=== PATIENT | male | born 1980 | race Caucasian/White ===

== ENCOUNTER 2023-07-17 14:33 | Emergency (ER) | payer SELFPAY ==
--- NOTE | 2023-07-17 14:42 | XR_ITS ---
WS: [id number] Left foot, 3 views, 07/17/2023 Clinical Data: injury Comparison: None. Findings: No fractures or dislocations are seen. No bone destruction or erosion is noted. The joint spaces and soft tissues are normal. There is a small Achilles spur. Impression: Negative left foot.
[2023-07-17 14:43] VITALS: RESP 18; TEMP 36.7; O2SAT 98
--- NOTE | 2023-07-17 14:43 | ED_ITS ---
HPI - Extremity Problem General: Chief complaint: Wound/Laceration Stated complaint: left foot injury with chainsaw Time Seen by Provider: 07/17/23 14:35 Source: patient Mode of arrival: ambulatory Limitations: no limitations History of Present Illness: 43-year-old male states he is cutting tr ee with a chainsaw states that he kicked his chainsaw back into his left foot and lacerated his left foot he was wearing a boot he has a lacerations roughly 3 cm over the lateral portion of his foot no signs of any deep injuries he has pain he rates 3 out of 10 unsure when his last tetanus was. Associated symptoms: Deny chest pain, fever(s) or rash Review of Systems Const: Denies: fever(s), chills, body aches or change in appetite ENMT: Denies: throat pain or dental pain Card: Denies: chest pain Resp: Denies: dyspnea GI: Denies: abdominal pain, nausea, vomiting or diarrhea Musc: Reports: extremity pain; Denies: neck pain or back pain Skin/Breast: Denies: rash Neuro: Denies: headache(s) Physical Exam Const: COMMON NORMALS: no acute distress, patient oriented x3 and healthy appearing HENMT: COMMON NORMALS: normocephalic and atraumatic HEAD & SCALP: normocephalic and atraumatic Neck/C-Spine: COMMON NORMALS: full ROM and supple Chest: COMMONS NORMALS: normal inspection of the chest and normal palpation of entire chest wall Resp: COMMON NORMALS: normal respiratory effort, No retractions, No use of accessory muscles and clear to auscultation bilaterally AUSCULTATION: clear to auscultation bilaterally Cardio: COMMON NORMALS: regular rate, regular rhythm and No murmurs present (Cardio) RATE: regular rate RHYTHM: regular rhythm GI: COMMON NORMALS: Normal to inspection, nondistended, normoactive bowel sounds present, Soft to palpation, non-tender and no masses PALPATION: Yes Soft to palpation Extremity: COMMON NORMALS: full ROM NARRATIVE EXTREMITY EXAM: 4 cm laceration to left lateral foot no bony involvement of deep structure involvement bleeding controlled Neuro: COMMON NORMALS: patient oriented x3, moves all extremities and no focal motor deficits Psych: COMMON NORMALS: mental status grossly normal, Normal thought process present and cooperative THOUGHT PROCESS: Normal thought process present Skin: COMMON NORMALS: no rashes or lesions noted and no wounds GENERAL SKIN EXAM: no rashes or lesions noted Procedures Laceration Laceration 1: Site: lower extremity Side (If applicable): left Size (cm): 4 Description: linear Depth: simple, single layer Local Anesthetic: lidocaine 1% Amount of anesthesia used (mL): 10 Skin layer closed with: nylon Size (cm): 5-0 Number of sutures: 6 Technique: simple, interrupted Course Vital Signs: Vital signs: Vital Signs Temperature 98.1 F 07/17/23 14:43 Respiratory Rate 18 07/17/23 14:43 Pulse Oximetry 98 07/17/23 14:43 Oxygen Delivery Me thod Room Air 07/17/23 14:43 MDM - Extremity (Nontraumatic) Medical Decision Making Patient presents here with laceration to foot x-ray shows no fracture did irrigate thoroughly placed 6 sutures he is to return in 10 days for suture removal did update his tetanus he is to return if he has any signs of infection he understands agrees to plan. Medical Records I reviewed the patient's medical records. All radiology interpretation(s) finalized by discharge Discharge Plan Discharge Patient Disposition: Home Clinical Impression: Laceration Condition: Stable Prescriptions: No Action No Known Home Medications Discharge Orders: Discharge ED (Routine); Ordered 07/17/23 Ordered By: Maryjo Easton Discharge Diet: Advance as tolerated Discharge Activity: Resume usual activity Patient Instructions: Laceration (ED) Activity Restrictions/Additional Instructions: suture removal in 10 days Coding Level of Care Code ED Field Interviewer for Cristian Bruce
[2023-07-17] MEDS: HYDROcodone-acetaminophen 5-325 mg Tablet 1 TAB PO (14:48)
--- NOTE | 2023-07-17 15:10 | PC.NURSE ---
Cleaned wound on patient's foot with 500 ml sterile water.
== END 2023-07-17 15:42 | disposition home or self-care (01) ==
PROVIDERS: Emergency Provider Emergency Medicine
DX: S91.312A Laceration without foreign body, left foot, initial encounter (principal); W29.3XXA Contact with powered garden and outdoor hand tools and machinery, initial encounter; Y93.H9 Activity, other involving exterior property and land maintenance, building and construction; Z23 Encounter for immunization
CPT/HCPCS: 12002; 73630; 99283

== ENCOUNTER 2024-01-14 10:53 | Emergency (ER) | payer SELFPAY ==
[2024-01-14 10:56] VITALS: BP 120/85; PULSE 78; RESP 16; TEMP 36.6; O2SAT 97
[2024-01-14 11:01] VITALS: BP 120/85; O2SAT 97
[2024-01-14 11:39] LABS: Basophils % 0.6 %; Hematocrit 48.9 % (37-53); Lymphocytes % 30.8 %; Mean Corpuscular HGB Conc 34.4 g/dL (30-55); Mean Corpuscular Volume 90.2 fl (82-101); Mean Platelet Volume 10.7 fL (7.4-10.4); Monocytes # 0.2 10^3/uL (0.2-0.9); Monocytes % 5.5 %; Neutrophils # 2.06 10^3/uL (1.8-7.7); Neutrophils % 62.8 %; Nucleated Red Blood Cells % 0 %; Platelet Count 113 10^3/cmm (157-399); Red Blood Count 5.42 10^6/uL (3.85-5.65); Red Cell Distribution Width 12.4 % (12.1-15.1); White Blood Count 3.28 10^3/uL (3.29-11.43)
[2024-01-14 11:51] LABS: Alanine Aminotransferase 123 U/L (0-41); Albumin Level 4.3 g/dL (3.5-5.2); Alkaline Phosphatase 166 U/L (40-130); Anion Gap 17.1 (5-19); Aspartate Amino Transferase 79 U/L (0-40); Blood Urea Nitrogen 10 mg/dL (6-20); Calcium 9.2 mg/dL (8.5-10.5); Carbon Dioxide 26 mmol/L (22-29); Chloride 98 mmol/L (98-107); Globulin 3.2 g/dL (1.3-4.6); Glomerular Filtration Rate 104.5 mL/min (90-130); Glucose 99 mg/dL (65-115); Lipase 17 U/L (13-60); Osmolality Calculated 283 mOsm/kg (285-295); Potassium 4.1 mmol/L (3.5-5.1); Sodium 137 mmol/L (136-145); Total Bilirubin 0.8 mg/dL (0.15-1.2); Total Protein 7.5 g/dL (6.6-8.7)
--- NOTE | 2024-01-14 12:02 | ED_ITS ---
HPI - General Adult 2 General: Chief complaint: General Medical Stated complaint: fever, abd pain Time Seen by Provider: 01/14/24 11:26 Source: patient Mode of arrival: ambulatory History of Present Illness: 43-year-old male presents emergency room complaining of fever for the last 4 days with bilateral flank pain. He is tried Tylenol and ibuprofen. Tmax has been 104 but he has had regular temps these reports of 102. When he was in his 20s he had an episode of renal failure related to salicylate overdose. He denies dysuria urgency or frequency or hematuria. Denies vomiting or diarrhea but has had migraine during the same timeframe and its made him very nauseous. He denies hematemesis or coffee-ground emesis. Due to the headache and flank pain he has had poor appetite and poor intake the last several days. Onset (ago): minute(s) Associated symptoms: Deny chest pain, dyspnea or rash Review of Systems 2 Const: Denies: fever(s) or chills Card: Denies: chest pain Resp: Denies: dyspnea GI: Denies: abdominal pain : Denies: dysuria, urinary frequency or urinary urgency Musc: Denies: neck pain or back pain Skin/Breast: Denies: rash Physical Exam 2 Const: GENERAL APPEARANCE: cooperative and comfortable O RIENTATION/CONSCIOUSNESS: Yes awake, Yes oriented to person, Yes oriented to place and Yes oriented to time HENMT: COMMON NORMALS: normocephalic, atraumatic and hearing grossly normal bilaterally HEAD & SCALP: normocephalic and atraumatic Resp: COMMON NORMALS: normal respiratory effort, No retractions, No use of accessory muscles and clear to auscultation bilaterally AUSCULTATION: clear to auscultation bilaterally Cardio: COMMON NORMALS: regular rate, regular rhythm and No murmurs present (Cardio) RATE: regular rate RHYTHM: regular rhythm GI: COMMON NORMALS: Soft to palpation and No hepatosplenomegaly present A USCULTATION: Yes normoactive bowel sounds PALPATION: Yes Soft to palpation, No Tenderness to palpation present (GI), No Guarding due to palpation present (GI) and Yes No hepatosplenomegaly present : BLADDER/KIDNEY EXAM: Yes CVA tenderness Back/Pelvis: GENERAL BACK: Yes CVA tenderness CVA tenderness: bilateral Extremity: COMMON NORMALS: normal to inspection, capillary refill normal, no clubbing, cyanosis or edema, no calf tenderness and no pedal edema Neuro: SENSORIUM/ORIENTATION: Yes oriented to person, Yes oriented to place and Yes oriented to time Skin: COMMON NORMALS: no rashes or lesions noted GENERAL SKIN EXAM: no rashes or lesions noted Course 2 Vital Signs: Vital signs: Vital Signs Temperature 97.9 F 01/14/24 10:56 Pulse Rate 68 01/14/24 15:44 Respiratory Rate 16 01/14/24 10:56 Blood Pressure 126/81 01/14/24 15:44 Pulse Oximetry 92 01/14/24 15:44 Oxygen Delivery Me thod Room Air 01/14/24 14:00 MDM - General Adult Medical Decision Making Fever and abdominal pain. CT was negative white count shows some mild leukopenia. He is feeling a little better after fluids and ketorolac and metoclopramide for his headache. Suspect is viral in nature will discharge patient home return if he has further problems clinical diet for the next 2 days. Medical Records I reviewed the patient's medical records. Lab Data I reviewed the patient's lab results. 01/14/24 11:23 01/14/24 11:23 Radiology Impressions Abdomen/Pelvis CT 01/14/24 12:07 IMPRESSION: 1. No renal obstruction or calcification. No perinephric stranding. 2. Normal appendix. 3. No GI tract obstruction. 4. Slightly contracted gallbladder is probably due to a nonfasting state. No adjacent inflammation. Head CT 01/14/24 12:07 IMPRESSION: Negative head CT. Gallbladder Ultrasound 01/14/24 13:28 IMPRESSION: 1. Negative gallbladder. 2. No intrahepatic duct dilatation. 3. Hepatic hemangioma, 1.1 cm. Laboratory Results WBC 3.28 10^3/uL (3.29-11.43) L 01/14/24 11:23 RBC 5.42 10^6/uL (3.85-5.65) 01/14/24 11:23 Hgb 16.80 g/dL (11.27-16.99) 01/14/24 11:23 Hct 48.9 % (37-53) 01/14/24 11:23 MCV 90.2 fl (82-101) 01/14/24 11:23 MCH 31.0 pg (27-33) 01/14/24 11:23 MCHC 34.4 g/dL (30-55) 01/14/24 11:23 RDW 12.4 % (12.1-15.1) 01/14/24 11:23 Plt Count 113 10^3/cmm (157-399) L 01/14/24 11:23 MPV 10.7 fL (7.4-10.4) H 01/14/24 11:23 Neut % (Auto) 62.8 % 01/14/24 11:23 Lymph % (Auto) 30.8 % 01/14/24 11:23 [place] % (Auto) 5.5 % 01/14/24 11:23 Eos % (Auto) 0.0 % 01/14/24 11:23 Baso % (Auto) 0.6 % 01/14/24 11:23 Neut # (Auto) 2.06 10^3/uL (1.8-7.7) 01/14/24 11:23 Lymph # (Auto) 1.0 10^3/uL (0.8-4.8) 01/14/24 11:23 [place] # (Auto) 0.2 10^3/uL (0.2-0.9) 01/14/24 11:23 Eos # (Auto) 0.0 10^3/uL (0.0-0.8) 01/14/24 11:23 Baso # (Auto) 0.0 10^3/uL (0.0-0.1) 01/14/24 11:23 Nucleated RBC % (auto) 0 % 01/14/24 11:23 Nucleated RBCs # 0.0 /100WBC 01/14/24 11:23 Sodium 137 mmol/L (136-145) 01/14/24 11:23 Potassium 4.1 mmol/L (3.5-5.1) 01/14/24 11:23 Chloride 98 mmol/L (98-107) 01/14/24 11:23 Carbon Dioxide 26 mmol/L (22-29) 01/14/24 11:23 Anion Gap 17.1 (5-19) 01/14/24 11:23 BUN 10 mg/dL (6-20) 01/14/24 11:23 Creatinine 0.8 mg/dL (0.7-1.2) 01/14/24 11:23 GFR Calculation 104.5 mL/min (90-130) 01/14/24 11:23 Glucose 99 mg/dL (65-115) 01/14/24 11:23 Calculated Osmolality 283 mOsm/kg (285-295) L 01/14/24 11:23 Lactic Acid 1.0 mmol/L (0.5-2.2) 01/14/24 11:23 Calcium 9.2 mg/dL (8.5-10.5) 01/14/24 11:23 Magnesium 2.1 mg/dL (1.7-2.3) 01/14/24 11:23 Total Bilirubin 0.8 mg/dL (0.15-1.2) 01/14/24 11:23 AST 79 U/L (0-40) H 01/14/24 11:23 ALT 123 U/L (0-41) H 01/14/24 11:23 Alkaline Phosphatase 166 U/L (40-130) H 01/14/24 11:23 Total Protein 7.5 g/dL (6.6-8.7) 01/14/24 11:23 Albumin 4.3 g/dL (3.5-5.2) 01/14/24 11:23 Globulin 3.2 g/dL (1.3-4.6) 01/14/24 11:23 Lipase 17 U/L (13-60) 01/14/24 11:23 Urine Color Yellow (Yellow) 01/14/24 13:13 Urine Appearance Clear (CLEAR) 01/14/24 13:13 Urine pH 6 (5-7) 01/14/24 13:13 Ur Specific [place] 1.005 (1.005-1.030) 01/14/24 13:13 Urine Protein Neg (Negative) 01/14/24 13:13 Urine Glucose (UA) Norm (Normal) 01/14/24 13:13 Urine Ketones 1+ (Negative) H 01/14/24 13:13 Urine Blood Neg (Negative) 01/14/24 13:13 Urine Nitrate Negative (Negative) 01/14/24 13:13 Urine Bilirubin Neg (Negative) 01/14/24 13:13 Urine Urobilinogen Norm mg/dL (Negative) 01/14/24 13:13 Ur Leukocyte Esterase Negative (Negative) 01/14/24 13:13 Hepatitis A IgM Ab Non-reactive (Nonreactive) 01/14/24 11:23 Hep Bs Antigen Non-reactive (Nonreactive) 01/14/24 11:23 Hep B Core IgM Ab Non-reactive (Nonreactive) 01/14/24 11:23 Hepatitis C Antibody Non-reactive (Nonreactive) 01/14/24 11:23 All radiology interpretation(s) finalized by discharge Discharge Plan Discharge Patient Disposition: Home Clinical Impression: Acute right flank pain, Elevated transaminase level, Headache Condition: Stable Prescriptions: New promethazine 25 mg tablet 25 mg PO Q6H PRN (Reason: headache) Qty: 20 0RF diclofenac sodium 75 mg tablet,delayed release (DR/EC) 75 mg PO Q12H PRN (Reason: pain) Qty: 20 0RF Discontinued ibuprofen 200 mg Tablet 400 mg PO Q6H PRN (Reason: Pain) No Action acetaminophen 500 mg Tablet 500 mg PO Q6H PRN (Reason: Pain) Discharge Orders: Discharge ED (Routine); Ordered 01/14/24 Ordered By: Lalito Rodarte Discharge Diet: Usual diet Discharge Activity: Increase activity as tolerated Patient Instructions: Opioid Safety, Pain Management Activity Restrictions/Additional Instructions: Thank you for choosing [facility] for your healthcare needs today. It is very important that you follow up as instructed or that you return to the Emergency Department should you have concerns or if your condition changes or worsens in any way. You were seen today for right flank pain. Urine was normal. There is no elevation of your white count. CT did not show any acute abnormalities. Your liver enzymes were elevated but the gallbladder ultrasound was also negative. You would also mentioned you had had a headache. CT of your head did not show any acute abnormalities or bleeding. You were given diclofenac and promethazine to use as needed for recurrent headache and the persistent flank pain. You should establish with a primary care doctor if your symptoms persist follow-up with your primary care doctor you should have your liver functions rechecked if they remain elevated you may need further evaluation with specialist. Coding Level of Care Code ED Water Quality Specialist for Cristian Bruce
--- NOTE | 2024-01-14 12:07 | CT_ITS ---
WS: [id number] CT HEAD NONCONTRAST HISTORY: headache TECHNIQUE: Contiguous axial imaging performed through the brain in 3.0 mm imaging. Bone and soft tiss ue windows. Sagittal and coronal reformats reviewed. All CT scans at [facility] use at least one of these dose optimization techniques: automated exposure control; mA and/or kV adjustment per pa tient size (includes targeted exams where dose is matched to clinical indication); or iterative recon struction. DLP: 1043.20 mGy.cm COMPARISON: 04/06/2010 No acute intracranial hemorrhage, midline shift or mass effect. No atrophy or prior infarcts or herniation. Ventricles: Normal size with no hydrocephalus. Paranasal sinuses: As visualized are clear. Mastoid air cells: Well pneumatized. Calvarium and scalp: Skull is intact with no soft tissue edema or swelling. CT/CT head wo con* [id number] IMPRESSION: Negative head CT.
--- NOTE | 2024-01-14 12:07 | CT_ITS ---
WS: [id number] CT ABDOMEN AND PELVIS NONCONTRAST HISTORY: flank pain TECHNIQUE: Imaging performed through the abdomen and pelvis. Coronal and sagittal reformats are submi tted. All CT scans at [facility] use at least one of these dose optimization techniques: auto mated exposure control; mA and/or kV adjustment per patient size (includes targeted exams where dose is matched to clinical indication); or iterative reconstruction. DLP: 648.29 mGy.cm COMPARISON: None available. Lower thorax: Lung bases are clear. Visualized heart is normal. Small hiatal hernia. Liver: Mild hepatic steatosis. Liver is very minimally enlarged. No bile duct dilatation. Gallbladder: Mildly contracted gallbladder. Breathing motion artifact causing indistinctness of the w all. No adjacent inflammation. Pancreas: Normal size and attenuation. Normal pancreatic duct. No pancreatitis or mass. Spleen: Normal. Adrenal glands: Normal. No mass. Right kidney: Normal size kidney with no mass or hydronephrosis. Left kidney: Normal size kidney with no mass or hydronephrosis. Aorta: Mild atherosclerosis abdominal aorta with no aneurysm. No free fluid, intraperitoneal air or significant lymphadenopathy. GI tract: Normal noncontrast imaging of the stomach, small bowel and colon. No obstruction or wall th ickening. Normal appendix. Abdominal wall: Small umbilical hernia contains fat only. Pelvis: Well-distended urinary bladder. No free fluid. No adenopathy. Osseous structures: Slight anterior wedging of T12. CT/CT kidney stone [id number] IMPRESSION: 1. No renal obstruction or calcification. No perinephric stranding. 2. Normal appendix. 3. No GI tract obstruction. 4. Slightly contracted gallbladder is probably due to a nonfasting state. No a djacent inflammation.
[2024-01-14 12:34] LABS: Slide Review Slide Review Perform
[2024-01-14 13:00] VITALS: BP 113/80; PULSE 73; O2SAT 91
[2024-01-14 13:21] LABS: Magnesium 2.1 mg/dL (1.7-2.3)
--- NOTE | 2024-01-14 13:28 | US_ITS ---
WS: [id number] RIGHT UPPER QUADRANT ULTRASOUND HISTORY: elevated LFTs COMPARISON: None available. Liver: 17.5 cm in length. Normal size liver and echogenicity. No bile duct dilatation. Hyperechoic ma ss measures 1.1 cm toward the diaphragmatic surface consistent with a hemangioma. Portal Vein: Normal hepatopetal flow with monophasic waveform. Gallbladder: Normally distended gallbladder with no stones or wall thickening. Slight gallbladder con traction. CBD: 0.3 cm Pancreas: Normal size and echogenicity. Right kidney: 10.5 cm in length. Normal size and echogenicity. No hydronephrosis or mass. Aorta and IVC: Unremarkable abdominal aorta and IVC. No ascites. US/US gall bladder [id number] IMPRESSION: 1. Negative gallbladder. 2. No intrahepatic duct dilatation. 3. Hepatic hemangioma, 1.1 cm.
[2024-01-14 13:30] VITALS: BP 124/80; PULSE 68; O2SAT 95
[2024-01-14 14:00] VITALS: BP 103/79; PULSE 70; O2SAT 96
[2024-01-14 14:14] LABS: Hepatitis A Antibody IgM Non-Reactive (Nonreactive); Hepatitis B Core IgM Non-Reactive (Nonreactive); Hepatitis B Surface Antigen Non-Reactive (Nonreactive); Hepatitis C Virus Antibody Non-Reactive (Nonreactive)
[2024-01-14 14:29] LABS: Add Urine Microscopic? NO; Charge for UA Resulting for Rev
[2024-01-14 14:59] LABS: Bilirubin Urine Neg (Negative); Blood Urine Neg (Negative); Glucose Urine UA Norm (Normal); Ketones Urine 1+ (Negative); Leukocyte Esterase Urine Negative (Negative); Nitrate Urine Negative (Negative); Protein Urine Neg (Negative); Specific Gravity, Urine 1.005 (1.005-1.030); Urine Appearance Clear (CLEAR); Urine Color Yellow (Yellow); Urobilinogen Urine Norm (Negative); pH Urine 6 (5-7)
[2024-01-14] MEDS: dexamethasone 10 mg/mL INJ IVP (15:39)
[2024-01-14] MEDS: ketorolac 30 mg/mL INJ IVP (15:39)
[2024-01-14] MEDS: metoclopramide 5 mg/mL SDV 2 mL 10 MG IVP (15:40)
[2024-01-14 15:44] VITALS: BP 126/81; PULSE 68; O2SAT 92
== END 2024-01-14 16:07 | disposition home or self-care (01) ==
PROVIDERS: Emergency Medicine; Emergency Provider Family Medicine
DX: R10.9 Unspecified abdominal pain (principal); R51.9 Headache, unspecified; R74.01 Elevation of levels of liver transaminase levels
CPT/HCPCS: 36415; 70450; 74176; 76705; 80053; 80074; 81003; 83605; 83690; 83735; 85025; 87040; 96361; 96374; 96375; 99285; J1100; J1885; J2765; J7030